=== PATIENT | male | born 1980 | race African-American/Black ===

== ENCOUNTER 2017-08-22 11:07 | Emergency (ER) | payer SELFPAY ==
[2017-08-22 11:43] VITALS: BP 140/94; PULSE 83; TEMP 98.4; BMI 35.4
--- NOTE | 2017-08-22 12:24 | PDOC ---
History of Present Illness - General Chief Complaint: Headache Stated Complaint: HEADACHES, NAUSEA Time Seen by Provider: 08/22/17 12:23 Past History - Past Medical History Allergies/Adverse Reactions: Allergies Allergy/AdvReac Type Severity Reaction Status Date / Time Penicillins Allergy Verified 08/22/17 11:38 Home Medications: Ambulatory Orders NK [No Known Home Medication] 08/22/17 COPD: No - Suicide/Smoking/Psychosocial Hx Smoking History: Current every day smoker Have you smoked in the past 12 months: Yes Number of Cigarettes Smoked Daily: 10 Information on smoking cessation initiated: No Hx Alcohol Use: No Drug/Substance Use Hx: No Substance Use Type: Alcohol *Physical Exam - Vital Signs Last Vital Signs Temp Pulse Resp BP Pulse Ox 98.4 F 83 18 140/94 100 08/22/17 11:38 08/22/17 11:38 08/22/17 11:38 08/22/17 11:38 08/22/17 11:38
[2017-08-22] MEDS ORDERED: KETOROLAC TROMETHAMINE 60 MG/2 ML VIAL IM ONE (12:43)
[2017-08-22] MEDS ORDERED: KETOROLAC TROMETHAMINE 60 MG/2 ML VIAL ONE (12:51)
--- NOTE | 2017-08-22 12:52 | PDOC ---
History of Present Illness - General Chief Complaint: Headache Stated Complaint: HEADACHES, NAUSEA Time Seen by Provider: 08/22/17 12:23 History Source: Patient Exam Limitations: No Limitations - History of Present Illness Initial Comments: 08/22/17 12:06 37 y/o male presents to the emergency room with complaints of intermittent frontal headache for the past 3 weeks with mild relief using Motrin or Tylenol but only to return shortly thereafter within hours. Patient also complaining of photosensitivity, photosensitivity with mild nausea for the past 2 days. Patient denies visual changes, neck pain, dizziness, sore throat, chest pain shortness of breath or lower extremity edema. Patient denies history of hypertension but does state eats high salt and fatty foods frequently. Timing/Duration: reports: waxing and waning Severity: Yes: moderate Associated Symptoms: reports: nausea/vomiting (nausea). denies: weakness Past History - Travel Traveled outside of the country in the last 30 days: No - Past Medical History Allergies/Adverse Reactions: Allergies Allergy/AdvReac Type Severity Reaction Status Date / Time Penicillins Allergy Verified 08/22/17 11:38 Home Medications: Ambulatory Orders NK [No Known Home Medication] 08/22/17 COPD: No - Suicide/Smoking/Psychosocial Hx Smoking History: Current every day smoker Have you smoked in the past 12 months: Yes Number of Cigarettes Smoked Daily: 10 Information on smoking cessation initiated: No Hx Alcohol Use: No Drug/Substance Use Hx: No Substance Use Type: Alcohol Patient Lives Alone: No Lives with/in: spouse/SO Neuro Specific PMHX - Complaint Specific PMHX Migraine: No Review of Systems - Review of Systems Able to Perform ROS?: No Constitutional: No: Symptoms Reported HEENTM: No: Symptoms Reported Respiratory: No: Symptoms reported Cardiac (ROS): No: Symptoms Reported ABD/GI: No: Symptoms Reported : No: Symptoms Reported Integumentary: No: Symptoms Reported Neurological: Yes: Headache. No: Weakness *Physical Exam - Vital Signs Last Vital Signs Temp Pulse Resp BP Pulse Ox 98.4 F 83 18 140/94 100 08/22/17 11:38 08/22/17 11:38 08/22/17 11:38 08/22/17 11:38 08/22/17 11:38 - Physical Exam General Appearance: Yes: Nourished, Appropriately Dressed. No: Apparent Distress HEENT: positive: EOMI, SAMIRA, Normal Voice, TMs Normal, Pharynx Normal. negative : Pale Conjunctivae, Photophobia Neck: positive: Supple Respiratory/Chest: positive: Lungs Clear, Normal Breath Sounds. negative: Respiratory Distress, Accessory Muscle Use Cardiovascular: positive: Regular Rhythm, Regular Rate. negative: Murmur Gastrointestinal/Abdominal: positive: Normal Bowel Sounds, Soft. negative: Tenderness Extremity: positive: Normal Capillary Refill. negative: Normal Range of Motion Integumentary: positive: Normal Color, Warm, Moist Neurologic: positive: Motor Strength 5/5 (ambulatory) ED Treatment Course - RADIOLOGY Radiology Studies Ordered: Category Date Time Status HEAD CT WITHOUT CONTRAST [CT] Stat CT Scan 08/22/17 12:43 Ordered Medical Decision Making - Medical Decision Making 08/22/17 12:57 Patient with gradual onset of frontal headache causing photosensitivity and photosensitivity along with nausea. Patient states moderate improvement with Motrin but headache returns within 6-8 hours at the same severity. Patient denies history of migraines, head injury, recent illness, fever, or neck pain. Patient on exam had no acute findings. Patient with mildly elevated blood pressure declined patient the importance of following a low-salt low-fat diet. Patient will be ordered for IM Toradol along with a head CT. 08/22/17 14:[address] negative. Patient states feeling better. Patient to be discharged home with recommendations to take extra strength Tylenol or fioricet and to follow- up with neurology. *DC/Admit/Observation/Transfer Diagnosis at time of Disposition: Headache - Discharge Dispostion Disposition: HOME Condition at time of disposition: Improved - Referrals Referrals: Justice Woody DO [Staff Physician] - - Patient Instructions Printed Discharge Instructions: DI for Hormonal and Tension Headaches Additional Instructions: Stay well-hydrated and follow a low salt lowfat diet as previously discussed. may take Tylenol extra strength 975mg or 1000 mg every 8 hours for discomfort. May take fioricet as needed and please follow up with neurology as needed - Post Discharge Activity
== END 2017-08-22 14:41 | disposition home or self-care (01) ==
LOC: JERFT 11:07
PROC: 3E0233Z Introduction of Anti-inflammatory into Muscle, Percutaneous Approach (ICD-10-PCS; principal; 2017-08-22)
DX: R51 Headache (principal)
CPT/HCPCS: 70450-TC; 99281-25

== ENCOUNTER 2020-07-27 00:04 | Emergency (ER) | payer SELFPAY ==
[2020-07-27 01:24] VITALS: BP 143/82; PULSE 102; TEMP 98.3; BMI 33.2
[2020-07-27] MEDS ORDERED: DIPHTH,PERTUSS(ACELL),TET 0.5 ML DISP.SYRIN IM ONE ×2 (01:51→02:10)
[2020-07-27] MEDS ORDERED: BACITRACIN 15 GM TUBE TOPICAL OINTMENT TP ONE (01:51)
[2020-07-27] MEDS ORDERED: BACITRACIN 0.9 GM PACKET ONE (02:10)
== END 2020-07-27 02:24 | disposition home or self-care (01) ==
LOC: JER 00:04
PROC: 3E0234Z Introduction of Serum, Toxoid and Vaccine into Muscle, Percutaneous Approach (ICD-10-PCS; principal; 2020-07-27)
DX: S01.521A Laceration with foreign body of lip, initial encounter (principal)
CPT/HCPCS: 90715; 99284-25